=== PATIENT | female | born 1955 | race Caucasian/White ===

== ENCOUNTER 2016-12-18 15:14 | Emergency (ER) | payer BC ==
[~2016-12-18] VITALS: Ht 160 cm; Wt 81.6 kg
== END 2016-12-18 17:26 | disposition home or self-care (01) ==
LOC: CED 15:14
DX: T78.49XA Other allergy, initial encounter (principal); L29.9 Pruritus, unspecified; I10 Essential (primary) hypertension; Z79.899 Other long term (current) drug therapy
CPT/HCPCS: 96372; 99283; J1100